=== PATIENT | female | born 1945 | race African-American/Black ===

== ENCOUNTER 2018-06-23 16:27 | Observation (INO) ==
[2018-06-23] MEDS ORDERED: MORPHINE 4 MG/1 ML VIAL IV STA (17:06)
[2018-06-23] MEDS ORDERED: ONDANSETRON 4 MG/2 ML VIAL IV STA (17:06)
[2018-06-23] MEDS ORDERED: ASPIRIN 325 MG TABLET PO STA (17:06)
[2018-06-23 17:45] LABS: Basophils # 0.1 10*3/uL (0.0-0.2); Eosinophils # 0.3 10*3/uL (0.0-0.87); Hematocrit 38.1 VOL% (35.7-47.0); Hemoglobin 12.2 GM/DL (12.0-16.0); Immature Granulocytes % 0.6 %; Immature Granulocytes Absolute 0.05 #; Lymphocytes # 2.4 10*3/uL (1.4-4.0); Lymphocytes % 29.2 % (21.3-54.2); Mean Corpuscular Hemoglobin 29 PG (27-34); Mean Corpuscular Volume 91.1 FL (87-102); Mean Platelet Volume 11.1 FL (9.6-12.0); Monocytes # 0.9 10*3/uL (0.11-0.8); Monocytes % 10.8 % (1.7-12.7); Neutrophils # 4.5 10*3/uL (1.4-7.4); Neutrophils % 54.4 % (38.7-73.9); Platelet Count 280 T/CUMM (130-400); Red Blood Count 4.18 MC/CUMM (3.8-5.5); Red Cell Distribution Width 13.9 % (9.3-17.3); White Blood Count 8.2 T/CUMM (4-12)
[2018-06-23 17:45] LABS: Apearance,Urine CLEAR (Clear); Bilirubin,Urine Negative (Negative); Blood, Urine Negative (Negative); Glucose,Urine (UA) Negative (Negative); Ketones,Urine Negative (Negative); Nitrite,Urine Negative (Negative); Protein,Urine Negative; RBC,Urine 1 /HPF (0-4); Squamous Epithelial Cell,Urine Occasional /HPF (0-10); Urine Color Yellow (Yellow); Urine Specific Gravity 1.014 (1.001-1.035); Urine Urobilinogen < 2.0 EU/DL (0.2-1.0); WBC,Urine 3 /HPF (0-6)
[2018-06-23 17:52] LABS: INR 0.9; PT Patient Result 10.3 SECS
[2018-06-23 18:04] LABS: Alanine Aminotransferase 22 U/L (13-56); Albumin 3.8 G/DL (3.4-5.0); Alkaline Phosphatase 56 U/L (45-117); Aspartate Amino Transferase 17 U/L (0-37); Bilirubin,Total < 0.39 MG/DL (0.2-1.0); Blood Urea Nitrogen 32 MG/DL (7-18); Calcium 8.8 MG/DL (8.5-10.1); Glucose 88 MG/DL (74-106); Osmolality,Calculated 284.4 MOS/KG (273-304); Potassium 3.9 MMOL/L (3.5-5.1); Sodium 140 MMOL/L (136-145); Total Protein 7.5 G/DL (6.4-8.3)
[2018-06-23] MEDS ORDERED: hydrALAZINE 20 MG/1 ML VIAL IV STA (18:59)
[2018-06-23] MEDS ORDERED: GLUCAGON 1 MG VIAL IM PRN (20:05)
[2018-06-23] MEDS ORDERED: MORPHINE 4 MG/1 ML VIAL IV PRN (20:05)
[2018-06-23] MEDS ORDERED: DEXTROSE 50% 25 GM/50 ML SYRINGE IV PRN (20:05)
[2018-06-23] MEDS ORDERED: ACETAMINOPHEN 325 MG TABLET PO PRN (20:05)
[2018-06-23] MEDS ORDERED: SODIUM CHLORIDE 0.9% 500 ML IV SCH (20:30)
[2018-06-23] MEDS ORDERED: NITROGLYCERIN 2% OINT 1 INCH/GM PACK TOP ONE (20:37)
[2018-06-23] MEDS ORDERED: NITROGLYCERIN SL 0.4 MG TABLET SL PRN (20:37)
[2018-06-23] MEDS: busPIRone 10 MG TABLET PO SCH (22:38)
[2018-06-23] MEDS: LOSARTAN 50 MG TABLET PO SCH (22:38)
[2018-06-23] MEDS: PANTOPRAZOLE 40 MG TABLET PO SCH (22:39)
[2018-06-23] MEDS: SIMVASTATIN 20 MG TABLET PO SCH (22:39)
[2018-06-23] MEDS: ENOXAPARIN 40 MG/0.4 ML SYRINGE SUBCUT SCH (22:39)
[2018-06-23] MEDS: INSULIN LISPRO 100 UNIT/ML SUBCUT SCH (22:39)
[2018-06-23] MEDS: INSULIN ASPART PROTAMINE/ASPART 70/30 100 UNIT/ML SUBCUT SCH (23:00)
[2018-06-24 04:58] LABS: Basophils # 0.1 10*3/uL (0.0-0.2); Basophils % 0.8 % (0.0-0.8); Eosinophils # 0.3 10*3/uL (0.0-0.87); Eosinophils % 3.6 % (0.00-10.9); Hemoglobin 11.3 GM/DL (12.0-16.0); Immature Granulocytes % 0.4 %; Immature Granulocytes Absolute 0.03 #; Lymphocytes # 2.7 10*3/uL (1.4-4.0); Lymphocytes % 34.8 % (21.3-54.2); Mean Corpuscular HGB Conc 32.3 GM/DL (32-36); Mean Corpuscular Hemoglobin 30 PG (27-34); Mean Corpuscular Volume 91.4 FL (87-102); Mean Platelet Volume 11.6 FL (9.6-12.0); Monocytes # 0.8 10*3/uL (0.11-0.8); Monocytes % 10.5 % (1.7-12.7); Neutrophils # 3.9 10*3/uL (1.4-7.4); Neutrophils % 49.9 % (38.7-73.9); Platelet Count 258 T/CUMM (130-400); Red Blood Count 3.83 MC/CUMM (3.8-5.5); Red Cell Distribution Width 14.1 % (9.3-17.3); White Blood Count 7.8 T/CUMM (4-12)
[2018-06-24 05:37] LABS: Calcium 8.1 MG/DL (8.5-10.1); Osmolality,Calculated 296.1 MOS/KG (273-304); Potassium 3.9 MMOL/L (3.5-5.1); Risk Ratio 2.26; Thyroid Stimulating Hormone 5.59 uIU/ml (0.358-3.74); VLDL CHOLESTEROL 29.2 MG/DL
[2018-06-24] MEDS: INSULIN LISPRO 100 UNIT/ML SUBCUT SCH ×4 (08:57→21:16)
[2018-06-24] MEDS: INSULIN ASPART PROTAMINE/ASPART 70/30 100 UNIT/ML SUBCUT SCH ×2 (09:52→21:14)
[2018-06-24] MEDS ORDERED: REGADENOSON 0.4 MG/5 ML SYRINGE IV ONE (10:14)
[2018-06-24] MEDS: glipiZIDE 5 MG TABLET PO SCH (10:40)
[2018-06-24] MEDS: LOSARTAN 50 MG TABLET PO SCH ×2 (10:41→21:12)
[2018-06-24] MEDS: ASPIRIN EC 81 MG TABLET PO SCH (10:41)
[2018-06-24] MEDS: ISOSORBIDE MONONITRATE 30 MG TABLET PO SCH (10:41)
[2018-06-24] MEDS: amLODIPine 10 MG TABLET PO SCH (10:41)
[2018-06-24] MEDS: PANTOPRAZOLE 40 MG TABLET PO SCH ×2 (10:41→21:12)
[2018-06-24] MEDS: busPIRone 10 MG TABLET PO SCH ×2 (10:41→21:12)
[2018-06-24 13:36] LABS: Free T4 (Free Thyroxine) 0.97 NG/DL (0.76-1.46)
[2018-06-24] MEDS: SIMVASTATIN 20 MG TABLET PO SCH (21:12)
[2018-06-24] MEDS: ENOXAPARIN 40 MG/0.4 ML SYRINGE SUBCUT SCH (21:13)
[2018-06-25] MEDS ORDERED: hydrALAZINE 20 MG/1 ML VIAL IV ONE (04:54)
[2018-06-25 05:06] LABS: Basophils # 0.1 10*3/uL (0.0-0.2); Eosinophils # 0.2 10*3/uL (0.0-0.87); Hematocrit 36.4 VOL% (35.7-47.0); Hemoglobin 11.6 GM/DL (12.0-16.0); Immature Granulocytes % 0.7 %; Immature Granulocytes Absolute 0.05 #; Lymphocytes # 2.8 10*3/uL (1.4-4.0); Lymphocytes % 39.2 % (21.3-54.2); Mean Corpuscular HGB Conc 31.9 GM/DL (32-36); Mean Corpuscular Hemoglobin 29 PG (27-34); Mean Corpuscular Volume 91.2 FL (87-102); Mean Platelet Volume 11.9 FL (9.6-12.0); Monocytes # 0.9 10*3/uL (0.11-0.8); Neutrophils # 3.1 10*3/uL (1.4-7.4); Neutrophils % 44.1 % (38.7-73.9); Platelet Count 268 T/CUMM (130-400); Red Blood Count 3.99 MC/CUMM (3.8-5.5); White Blood Count 7.1 T/CUMM (4-12)
[2018-06-25] MEDS: ONDANSETRON 4 MG/2 ML VIAL IV PRN (05:16)
[2018-06-25 05:20] LABS: Calcium 8.4 MG/DL (8.5-10.1); Osmolality,Calculated 285.8 MOS/KG (273-304); Potassium 3.3 MMOL/L (3.5-5.1)
[2018-06-25] MEDS ORDERED: POTASSIUM CHLORIDE 20 MEQ TABLET PO ONE (07:12)
[2018-06-25] MEDS: INSULIN LISPRO 100 UNIT/ML SUBCUT SCH ×4 (07:53→20:42)
[2018-06-25] MEDS: busPIRone 10 MG TABLET PO SCH ×2 (08:37→20:39)
[2018-06-25] MEDS: PANTOPRAZOLE 40 MG TABLET PO SCH ×2 (08:37→20:41)
[2018-06-25] MEDS: glipiZIDE 5 MG TABLET PO SCH (08:38)
[2018-06-25] MEDS: PRAZOSIN 1 MG CAPSULE PO SCH ×2 (08:38→20:41)
[2018-06-25] MEDS: DOCUSATE SODIUM 100 MG CAPSULE PO PRN (08:38)
[2018-06-25] MEDS: amLODIPine 10 MG TABLET PO SCH (08:38)
[2018-06-25] MEDS: CARVEDILOL 3.125 MG TABLET PO SCH ×2 (08:39→20:40)
[2018-06-25] MEDS: ISOSORBIDE MONONITRATE 30 MG TABLET PO SCH (08:39)
[2018-06-25] MEDS: INSULIN ASPART PROTAMINE/ASPART 70/30 100 UNIT/ML SUBCUT SCH ×2 (08:39→20:41)
[2018-06-25] MEDS: ASPIRIN EC 81 MG TABLET PO SCH (08:39)
[2018-06-25] MEDS: LOSARTAN 50 MG TABLET PO SCH ×2 (08:39→20:41)
[2018-06-25] MEDS ORDERED: CARVEDILOL 3.125 MG TABLET PO SCH (09:00)
[2018-06-25] MEDS: MAGNESIUM HYDROXIDE SUSP 30 ML UDCUP PO PRN (14:47)
[2018-06-25] MEDS: SIMVASTATIN 20 MG TABLET PO SCH (20:41)
[2018-06-25] MEDS: ENOXAPARIN 40 MG/0.4 ML SYRINGE SUBCUT SCH (20:43)
[2018-06-25] MEDS: hydrALAZINE 20 MG/1 ML VIAL IV PRN (23:56)
[2018-06-26 04:55] LABS: Calcium 8.6 MG/DL (8.5-10.1); Osmolality,Calculated 284.8 MOS/KG (273-304); Potassium 3.4 MMOL/L (3.5-5.1)
[2018-06-26] MEDS: hydrALAZINE 20 MG/1 ML VIAL IV PRN (06:14)
[2018-06-26] MEDS: CARVEDILOL 6.25 MG TABLET PO SCH ×2 (07:36→16:51)
[2018-06-26] MEDS: PRAZOSIN 1 MG CAPSULE PO SCH ×2 (07:37→21:37)
[2018-06-26] MEDS ORDERED: LORazepam 1 MG TABLET PO ONE (07:43)
[2018-06-26] MEDS: INSULIN LISPRO 100 UNIT/ML SUBCUT SCH ×4 (08:43→21:51)
[2018-06-26] MEDS: busPIRone 10 MG TABLET PO SCH ×2 (09:18→21:36)
[2018-06-26] MEDS: LOSARTAN 50 MG TABLET PO SCH ×2 (09:19→21:36)
[2018-06-26] MEDS: ASPIRIN EC 81 MG TABLET PO SCH (09:19)
[2018-06-26] MEDS: amLODIPine 10 MG TABLET PO SCH (09:19)
[2018-06-26] MEDS: ISOSORBIDE MONONITRATE 30 MG TABLET PO SCH (09:19)
[2018-06-26] MEDS: glipiZIDE 5 MG TABLET PO SCH (09:19)
[2018-06-26] MEDS: INSULIN ASPART PROTAMINE/ASPART 70/30 100 UNIT/ML SUBCUT SCH ×2 (09:19→21:41)
[2018-06-26] MEDS: PANTOPRAZOLE 40 MG TABLET PO SCH ×2 (09:19→21:38)
[2018-06-26] MEDS ORDERED: POTASSIUM CHLORIDE 20 MEQ TABLET PO ONE (09:45)
[2018-06-26] MEDS: ESCITALOPRAM 10 MG TABLET PO SCH (12:07)
[2018-06-26] MEDS: SIMVASTATIN 20 MG TABLET PO SCH (21:38)
[2018-06-26] MEDS: ENOXAPARIN 40 MG/0.4 ML SYRINGE SUBCUT SCH (21:39)
[2018-06-27] MEDS: ONDANSETRON 4 MG/2 ML VIAL IV PRN (07:30)
[2018-06-27] MEDS: INSULIN LISPRO 100 UNIT/ML SUBCUT SCH ×4 (07:34→22:13)
[2018-06-27] MEDS: ESCITALOPRAM 10 MG TABLET PO SCH (08:45)
[2018-06-27] MEDS: busPIRone 10 MG TABLET PO SCH ×2 (08:45→22:12)
[2018-06-27] MEDS: LOSARTAN 50 MG TABLET PO SCH ×2 (08:45→22:12)
[2018-06-27] MEDS: DOCUSATE SODIUM 100 MG CAPSULE PO PRN (08:45)
[2018-06-27] MEDS: PANTOPRAZOLE 40 MG TABLET PO SCH ×2 (08:45→22:14)
[2018-06-27] MEDS: glipiZIDE 5 MG TABLET PO SCH (08:45)
[2018-06-27] MEDS: ASPIRIN EC 81 MG TABLET PO SCH (08:45)
[2018-06-27] MEDS: amLODIPine 10 MG TABLET PO SCH (08:45)
[2018-06-27] MEDS: CARVEDILOL 6.25 MG TABLET PO SCH ×2 (08:45→16:44)
[2018-06-27] MEDS: PRAZOSIN 1 MG CAPSULE PO SCH ×2 (08:45→22:13)
[2018-06-27] MEDS: ISOSORBIDE MONONITRATE 30 MG TABLET PO SCH (08:45)
[2018-06-27] MEDS: MAGNESIUM HYDROXIDE SUSP 30 ML UDCUP PO PRN (08:46)
[2018-06-27] MEDS: INSULIN ASPART PROTAMINE/ASPART 70/30 100 UNIT/ML SUBCUT SCH ×2 (08:46→16:36)
[2018-06-27 14:42] LABS: Calcium 7.8 MG/DL (8.5-10.1); Osmolality,Calculated 285.4 MOS/KG (273-304); Potassium 4.4 MMOL/L (3.5-5.1)
[2018-06-27] MEDS ORDERED: SODIUM PHOSPHATE ENEMA 133 ML BOTTLE RECTAL PRN (16:12)
[2018-06-27] MEDS ORDERED: FLUCONAZOLE 150 MG TABLET PO ONE (17:00)
[2018-06-27] MEDS: ENOXAPARIN 40 MG/0.4 ML SYRINGE SUBCUT SCH (22:13)
[2018-06-27] MEDS: SIMVASTATIN 20 MG TABLET PO SCH (22:14)
[2018-06-28] MEDS: hydrALAZINE 20 MG/1 ML VIAL IV PRN (04:31)
[2018-06-28] MEDS: MAGNESIUM HYDROXIDE SUSP 30 ML UDCUP PO PRN (04:31)
[2018-06-28] MEDS: INSULIN LISPRO 100 UNIT/ML SUBCUT SCH ×2 (07:50→14:34)
[2018-06-28] MEDS: PRAZOSIN 1 MG CAPSULE PO SCH (08:31)
[2018-06-28] MEDS: INSULIN ASPART PROTAMINE/ASPART 70/30 100 UNIT/ML SUBCUT SCH (08:31)
[2018-06-28] MEDS: amLODIPine 10 MG TABLET PO SCH (08:38)
[2018-06-28] MEDS: CARVEDILOL 6.25 MG TABLET PO SCH (08:38)
[2018-06-28] MEDS: PANTOPRAZOLE 40 MG TABLET PO SCH (08:38)
[2018-06-28] MEDS: LOSARTAN 50 MG TABLET PO SCH (08:39)
[2018-06-28] MEDS: ISOSORBIDE MONONITRATE 30 MG TABLET PO SCH (08:39)
[2018-06-28] MEDS: ASPIRIN EC 81 MG TABLET PO SCH (08:39)
[2018-06-28] MEDS: busPIRone 10 MG TABLET PO SCH (08:39)
[2018-06-28] MEDS: ESCITALOPRAM 10 MG TABLET PO SCH (08:39)
[2018-06-28 12:02] VITALS: BP 184/75
== END 2018-06-28 13:40 | disposition home or self-care (01) ==
LOC: N.EDINP 16:27 → N.ED 16:27 → SUATTDRO 20:02 → N.TELES 20:21
PROVIDERS: ADMIT Internal Medicine; ATTEND Internal Medicine

== ENCOUNTER 2020-03-14 09:40 | Inpatient (IN) ==
[2020-03-14 10:57] LABS: Albumin 3.5 G/DL (3.4-5.0); Bilirubin,Total 0.6 MG/DL (0.2-1.0); Calcium 8.9 MG/DL (8.5-10.1); Osmolality,Calculated 285.4 MOS/KG (273-304); Total Protein 7.1 G/DL (6.4-8.3)
[2020-03-14 11:03] LABS: Basophils # 0.1 10*3/uL (0.0-0.2); Basophils % 0.6 % (0.0-0.8); Eosinophils # 0.1 10*3/uL (0.0-0.87); Eosinophils % 1.5 % (0.00-10.9); Hematocrit 39.6 VOL% (35.7-47.0); Hemoglobin 13.4 GM/DL (12.0-16.0); Immature Granulocytes % 0.3 %; Immature Granulocytes Absolute 0.03 #; Lymphocytes # 2.1 10*3/uL (1.4-4.0); Lymphocytes % 21.9 % (21.3-54.2); Mean Corpuscular HGB Conc 33.8 GM/DL (32-36); Mean Corpuscular Volume 88.6 FL (87-102); Mean Platelet Volume 11.1 FL (9.6-12.0); Monocytes % 7.8 % (1.7-12.7); Neutrophils % 67.9 % (38.7-73.9); Platelet Count 278 T/CUMM (130-400); Red Blood Count 4.47 MC/CUMM (3.8-5.5); Red Cell Distribution Width 13.3 % (9.3-17.3); White Blood Count 9.5 T/CUMM (4-12)
[2020-03-14] MEDS ORDERED: GLUCAGON 1 MG VIAL IM PRN (12:07)
[2020-03-14] MEDS ORDERED: DEXTROSE 50% 25 GM/50 ML VIAL IV PRN (12:07)
[2020-03-14] MEDS ORDERED: ENOXAPARIN 100 MG/ML SYRINGE SUBCUT STA (12:10)
[2020-03-14] MEDS ORDERED: ASPIRIN 325 MG TABLET PO STA (12:10)
[2020-03-14] MEDS: ONDANSETRON 4 MG/2 ML VIAL IV PRN (16:32)
[2020-03-14] MEDS: INSULIN REGULAR 100 UNIT/ML SUBCUT SCH ×2 (16:39→23:04)
[2020-03-14] MEDS: SIMVASTATIN 20 MG TABLET PO SCH (18:02)
[2020-03-14] MEDS ORDERED: ALBUTEROL 2.5 MG/3 ML NEB RESP TX PRN (19:00)
[2020-03-14] MEDS ORDERED: carvediloL 12.5 MG TABLET PO SCH (21:00)
[2020-03-14] MEDS: INSULIN GLARGINE 100 UNIT/ML SUBCUT SCH (23:03)
[2020-03-14] MEDS: busPIRone 15 MG TABLET PO SCH (23:04)
[2020-03-14] MEDS: LOSARTAN 50 MG TABLET PO SCH (23:04)
[2020-03-14] MEDS: glipiZIDE 5 MG TABLET PO SCH (23:04)
[2020-03-14] MEDS: DOCUSATE SODIUM 100 MG CAPSULE PO SCH (23:05)
[2020-03-14] MEDS: PANTOPRAZOLE 40 MG TABLET PO SCH (23:05)
[2020-03-15 06:35] LABS: Basophils # 0.1 10*3/uL (0.0-0.2); Basophils % 1.2 % (0.0-0.8); Eosinophils # 0.2 10*3/uL (0.0-0.87); Eosinophils % 2.8 % (0.00-10.9); Hematocrit 37.4 VOL% (35.7-47.0); Hemoglobin 12.9 GM/DL (12.0-16.0); Immature Granulocytes % 0.3 %; Immature Granulocytes Absolute 0.02 #; Lymphocytes # 2.6 10*3/uL (1.4-4.0); Lymphocytes % 39.5 % (21.3-54.2); Mean Corpuscular HGB Conc 34.5 GM/DL (32-36); Mean Corpuscular Volume 89.5 FL (87-102); Mean Platelet Volume 10.9 FL (9.6-12.0); Neutrophils % 45.2 % (38.7-73.9); Platelet Count 270 T/CUMM (130-400); Red Blood Count 4.18 MC/CUMM (3.8-5.5); Red Cell Distribution Width 13.6 % (9.3-17.3); White Blood Count 6.5 T/CUMM (4-12)
[2020-03-15 06:58] LABS: Calcium 8.2 MG/DL (8.5-10.1); Osmolality,Calculated 283.1 MOS/KG (273-304)
[2020-03-15] MEDS: PANTOPRAZOLE 40 MG TABLET PO SCH ×3 (09:29→21:22)
[2020-03-15] MEDS: glipiZIDE 5 MG TABLET PO SCH ×2 (09:30→21:23)
[2020-03-15] MEDS: ASPIRIN EC 81 MG TABLET PO SCH (09:30)
[2020-03-15] MEDS: ESCITALOPRAM 10 MG TABLET PO SCH (09:30)
[2020-03-15] MEDS: busPIRone 15 MG TABLET PO SCH ×3 (09:30→21:21)
[2020-03-15] MEDS: amLODIPine 5 MG TABLET PO SCH (09:30)
[2020-03-15] MEDS: PRAZOSIN 1 MG CAPSULE PO SCH (09:30)
[2020-03-15] MEDS: ISOSORBIDE MONONITRATE 30 MG TABLET PO SCH (09:31)
[2020-03-15] MEDS: FUROSEMIDE 40 MG TABLET PO SCH (09:31)
[2020-03-15] MEDS: LOSARTAN 50 MG TABLET PO SCH ×2 (09:31→21:21)
[2020-03-15] MEDS: DOCUSATE SODIUM 100 MG CAPSULE PO SCH ×2 (09:32→21:21)
[2020-03-15] MEDS: ENOXAPARIN 40 MG/0.4 ML SYRINGE SUBCUT SCH (09:32)
[2020-03-15] MEDS: INSULIN REGULAR 100 UNIT/ML SUBCUT SCH ×5 (09:32→21:32)
[2020-03-15 13:20] LABS: Bacteria,Urine Moderate /HPF (Few); Bilirubin,Urine Negative (Negative); Blood, Urine Negative (Negative); Glucose,Urine (UA) Negative (Negative); Hyaline Casts,Urine 1 /LPF (0-3); Ketones,Urine Negative (Negative); Nitrite,Urine Positive (Negative); Protein,Urine 100 MG/DL; RBC,Urine 2 /HPF (0-4); Squamous Epithelial Cell,Urine Occasional /HPF (0-10); Urine Appearance CLEAR (Clear); Urine Color Yellow (Yellow); Urine Specific Gravity 1.015 (1.001-1.035); Urine Urobilinogen < 2.0 EU/DL (0.2-1.0); WBC,Urine 1 /HPF (0-6)
[2020-03-15] MEDS: SIMVASTATIN 20 MG TABLET PO SCH (21:23)
[2020-03-15] MEDS: INSULIN GLARGINE 100 UNIT/ML SUBCUT SCH (21:25)
[2020-03-16 05:04] LABS: Basophils # 0.1 10*3/uL (0.0-0.2); Basophils % 1.1 % (0.0-0.8); Eosinophils # 0.2 10*3/uL (0.0-0.87); Eosinophils % 4.1 % (0.00-10.9); Hematocrit 38.9 VOL% (35.7-47.0); Hemoglobin 12.9 GM/DL (12.0-16.0); Immature Granulocytes % 0.4 %; Immature Granulocytes Absolute 0.02 #; Lymphocytes # 2.5 10*3/uL (1.4-4.0); Mean Corpuscular HGB Conc 33.2 GM/DL (32-36); Mean Corpuscular Volume 89.8 FL (87-102); Mean Platelet Volume 11.3 FL (9.6-12.0); Monocytes % 12.1 % (1.7-12.7); Neutrophils % 38.3 % (38.7-73.9); Platelet Count 246 T/CUMM (130-400); Red Blood Count 4.33 MC/CUMM (3.8-5.5); Red Cell Distribution Width 13.2 % (9.3-17.3); White Blood Count 5.6 T/CUMM (4-12)
[2020-03-16 05:21] LABS: Calcium 8.2 MG/DL (8.5-10.1)
[2020-03-16 05:26] LABS: Atypical Lymphocytes Few; Eosinophils 8 % (0-10); Hypochromasia 1+; Lymphocytes 46 % (20-55); Microcytosis Slight; Ovalocytes Slight; Platelet Estimate Adequate; Segmented Neutrophils 36 % (50-85); Total Cells Counted 100
[2020-03-16] MEDS: POTASSIUM CHLORIDE 20 MEQ TABLET PO PRN ×4 (06:26→16:34)
[2020-03-16] MEDS: hydrALAZINE 20 MG/1 ML VIAL IV PRN (08:44)
[2020-03-16] MEDS: INSULIN REGULAR 100 UNIT/ML SUBCUT SCH ×4 (08:46→21:39)
[2020-03-16] MEDS: PRAZOSIN 1 MG CAPSULE PO SCH (09:09)
[2020-03-16] MEDS: busPIRone 15 MG TABLET PO SCH ×3 (09:09→21:39)
[2020-03-16] MEDS: PANTOPRAZOLE 40 MG TABLET PO SCH ×3 (09:09→21:38)
[2020-03-16] MEDS: amLODIPine 5 MG TABLET PO SCH (09:10)
[2020-03-16] MEDS: LOSARTAN 50 MG TABLET PO SCH ×2 (09:10→21:39)
[2020-03-16] MEDS: FUROSEMIDE 40 MG TABLET PO SCH (09:10)
[2020-03-16] MEDS: ISOSORBIDE MONONITRATE 30 MG TABLET PO SCH (09:10)
[2020-03-16] MEDS: ESCITALOPRAM 10 MG TABLET PO SCH (09:10)
[2020-03-16] MEDS: ENOXAPARIN 40 MG/0.4 ML SYRINGE SUBCUT SCH (09:11)
[2020-03-16] MEDS: glipiZIDE 5 MG TABLET PO SCH ×2 (09:11→21:40)
[2020-03-16] MEDS: DOCUSATE SODIUM 100 MG CAPSULE PO SCH ×2 (09:11→21:37)
[2020-03-16] MEDS: ASPIRIN EC 81 MG TABLET PO SCH (09:11)
[2020-03-16] MEDS ORDERED: LIDOCAINE 1%/EPI INJ 20 ML VIAL ONE (09:41)
[2020-03-16] MEDS ORDERED: TISSUE ADHESIVE 1 EACH APPLICATOR TOP ONE ×2 (09:41→10:09)
[2020-03-16] MEDS ORDERED: LIDOCAINE 1%/EPI INJ 20 ML VIAL INFILTRAT ONE (10:13)
[2020-03-16] MEDS: SIMVASTATIN 20 MG TABLET PO SCH (18:02)
[2020-03-16] MEDS: INSULIN GLARGINE 100 UNIT/ML SUBCUT SCH (21:40)
[2020-03-16] MEDS: ACETAMINOPHEN 325 MG TABLET PO PRN (21:49)
[2020-03-17 05:43] LABS: Basophils # 0.1 10*3/uL (0.0-0.2); Eosinophils # 0.2 10*3/uL (0.0-0.87); Eosinophils % 2.9 % (0.00-10.9); Hematocrit 38.6 VOL% (35.7-47.0); Hemoglobin 12.8 GM/DL (12.0-16.0); Immature Granulocytes % 0.2 %; Immature Granulocytes Absolute 0.01 #; Lymphocytes # 2.5 10*3/uL (1.4-4.0); Lymphocytes % 48.2 % (21.3-54.2); Mean Corpuscular HGB Conc 33.2 GM/DL (32-36); Mean Corpuscular Volume 89.8 FL (87-102); Mean Platelet Volume 11.1 FL (9.6-12.0); Monocytes % 11.9 % (1.7-12.7); Neutrophils % 35.8 % (38.7-73.9); Platelet Count 254 T/CUMM (130-400); Red Cell Distribution Width 13.4 % (9.3-17.3); White Blood Count 5.2 T/CUMM (4-12)
[2020-03-17 06:11] LABS: Calcium 8.3 MG/DL (8.5-10.1); Osmolality,Calculated 280.3 MOS/KG (273-304)
[2020-03-17] MEDS: INSULIN REGULAR 100 UNIT/ML SUBCUT SCH ×4 (07:41→20:50)
[2020-03-17 08:37] LABS: Atypical Lymphocytes Few; Band Neutrophils 1 % (0-10); Eosinophils 2 % (0-10); Lymphocytes 54 % (20-55); Platelet Estimate Normal; Polychromasia Slight; Segmented Neutrophils 39 % (50-85); Total Cells Counted 100
[2020-03-17] MEDS: PANTOPRAZOLE 40 MG TABLET PO SCH ×3 (08:43→20:49)
[2020-03-17] MEDS: ASPIRIN EC 81 MG TABLET PO SCH (08:43)
[2020-03-17] MEDS: FUROSEMIDE 40 MG TABLET PO SCH (08:43)
[2020-03-17] MEDS: busPIRone 15 MG TABLET PO SCH ×3 (08:43→20:48)
[2020-03-17] MEDS: glipiZIDE 5 MG TABLET PO SCH ×3 (08:43→20:50)
[2020-03-17] MEDS: ESCITALOPRAM 10 MG TABLET PO SCH (08:43)
[2020-03-17] MEDS: DOCUSATE SODIUM 100 MG CAPSULE PO SCH ×2 (08:43→20:49)
[2020-03-17] MEDS: LOSARTAN 50 MG TABLET PO SCH ×2 (08:44→20:49)
[2020-03-17] MEDS: ACETAMINOPHEN 325 MG TABLET PO PRN ×2 (08:45→20:55)
[2020-03-17] MEDS: PRAZOSIN 1 MG CAPSULE PO SCH ×2 (08:45→20:48)
[2020-03-17] MEDS: ISOSORBIDE MONONITRATE 30 MG TABLET PO SCH (08:45)
[2020-03-17] MEDS: ENOXAPARIN 40 MG/0.4 ML SYRINGE SUBCUT SCH (08:46)
[2020-03-17] MEDS ORDERED: amLODIPine 5 MG TABLET PO SCH (09:00)
[2020-03-17] MEDS ORDERED: amLODIPine 10 MG TABLET PO SCH (09:00)
[2020-03-17] MEDS: SIMVASTATIN 20 MG TABLET PO SCH (19:03)
[2020-03-17] MEDS: INSULIN GLARGINE 100 UNIT/ML SUBCUT SCH (20:53)
[2020-03-18] MEDS: hydrALAZINE 20 MG/1 ML VIAL IV PRN ×2 (00:32→06:58)
[2020-03-18] MEDS: INSULIN REGULAR 100 UNIT/ML SUBCUT SCH ×4 (08:22→21:33)
[2020-03-18] MEDS: FUROSEMIDE 40 MG TABLET PO SCH (08:23)
[2020-03-18] MEDS: ESCITALOPRAM 10 MG TABLET PO SCH (08:23)
[2020-03-18] MEDS: ENOXAPARIN 40 MG/0.4 ML SYRINGE SUBCUT SCH (08:23)
[2020-03-18] MEDS: ASPIRIN EC 81 MG TABLET PO SCH (08:24)
[2020-03-18] MEDS: PANTOPRAZOLE 40 MG TABLET PO SCH ×3 (08:24→21:35)
[2020-03-18] MEDS: DOCUSATE SODIUM 100 MG CAPSULE PO SCH ×2 (08:24→21:35)
[2020-03-18] MEDS: ISOSORBIDE MONONITRATE 30 MG TABLET PO SCH (08:24)
[2020-03-18] MEDS: busPIRone 15 MG TABLET PO SCH ×3 (08:24→21:35)
[2020-03-18] MEDS: LOSARTAN 50 MG TABLET PO SCH ×2 (08:25→21:35)
[2020-03-18] MEDS: ONDANSETRON 4 MG/2 ML VIAL IV PRN ×2 (08:28→21:27)
[2020-03-18] MEDS: glipiZIDE 5 MG TABLET PO SCH ×2 (09:10→21:51)
[2020-03-18] MEDS ORDERED: CLORAZEPATE 3.75 MG TABLET PO SCH ×2 (12:30→13:00)
[2020-03-18] MEDS ORDERED: ALUMINUM/MAGNES/SIMETH MAX STR 30 ML UDCUP PO PRN (12:44)
[2020-03-18] MEDS: FAMOTIDINE 20 MG TABLET PO SCH (16:48)
[2020-03-18] MEDS: SIMVASTATIN 20 MG TABLET PO SCH (18:34)
[2020-03-18] MEDS: INSULIN GLARGINE 100 UNIT/ML SUBCUT SCH (21:33)
[2020-03-18] MEDS: PRAZOSIN 1 MG CAPSULE PO SCH (21:35)
[2020-03-18] MEDS ORDERED: MAGNESIUM HYDROXIDE SUSP 30 ML UDCUP PO PRN (21:45)
[2020-03-18] MEDS: CLORAZEPATE 3.75 MG TABLET PO SCH (22:16)
[2020-03-19] MEDS: ACETAMINOPHEN 325 MG TABLET PO PRN (04:59)
[2020-03-19] MEDS: ONDANSETRON 4 MG/2 ML VIAL IV PRN (05:07)
[2020-03-19 05:35] LABS: Basophils # 0.1 10*3/uL (0.0-0.2); Basophils % 0.8 % (0.0-0.8); Eosinophils % 0.6 % (0.00-10.9); Hematocrit 39.1 VOL% (35.7-47.0); Hemoglobin 13.1 GM/DL (12.0-16.0); Immature Granulocytes % 0.2 %; Immature Granulocytes Absolute 0.01 #; Lymphocytes # 1.7 10*3/uL (1.4-4.0); Lymphocytes % 26.2 % (21.3-54.2); Mean Corpuscular HGB Conc 33.5 GM/DL (32-36); Mean Corpuscular Volume 90.1 FL (87-102); Mean Platelet Volume 11.5 FL (9.6-12.0); Monocytes % 11.3 % (1.7-12.7); Neutrophils % 60.9 % (38.7-73.9); Platelet Count 254 T/CUMM (130-400); Red Blood Count 4.34 MC/CUMM (3.8-5.5); Red Cell Distribution Width 13.4 % (9.3-17.3); White Blood Count 6.6 T/CUMM (4-12)
[2020-03-19 05:48] LABS: Albumin 3.1 G/DL (3.4-5.0); Bilirubin,Total 0.6 MG/DL (0.2-1.0); Calcium 8.5 MG/DL (8.5-10.1); Osmolality,Calculated 284.4 MOS/KG (273-304); Total Protein 6.4 G/DL (6.4-8.3)
[2020-03-19] MEDS: ENOXAPARIN 40 MG/0.4 ML SYRINGE SUBCUT SCH (08:38)
[2020-03-19] MEDS: ASPIRIN EC 81 MG TABLET PO SCH (08:39)
[2020-03-19] MEDS: DOCUSATE SODIUM 100 MG CAPSULE PO SCH ×2 (08:39→22:01)
[2020-03-19] MEDS: PRAZOSIN 1 MG CAPSULE PO SCH ×2 (08:39→22:02)
[2020-03-19] MEDS: busPIRone 15 MG TABLET PO SCH ×3 (08:40→22:02)
[2020-03-19] MEDS: CLORAZEPATE 3.75 MG TABLET PO SCH ×2 (08:40→22:03)
[2020-03-19] MEDS: ISOSORBIDE MONONITRATE 60 MG TABLET PO SCH (08:40)
[2020-03-19] MEDS: ESCITALOPRAM 10 MG TABLET PO SCH (08:40)
[2020-03-19] MEDS: FUROSEMIDE 40 MG TABLET PO SCH (08:41)
[2020-03-19] MEDS: LOSARTAN 50 MG TABLET PO SCH ×2 (08:41→22:02)
[2020-03-19] MEDS: FAMOTIDINE 20 MG TABLET PO SCH (08:41)
[2020-03-19] MEDS: PANTOPRAZOLE 40 MG TABLET PO SCH ×2 (08:42→22:01)
[2020-03-19] MEDS: INSULIN REGULAR 100 UNIT/ML SUBCUT SCH ×4 (08:42→22:08)
[2020-03-19] MEDS: glipiZIDE 5 MG TABLET PO SCH (09:56)
[2020-03-19] MEDS: POLYETHYLENE GLYCOL POWDER 17 GM PACK PO SCH (16:57)
[2020-03-19] MEDS: BISACODYL 5 MG TABLET PO SCH (16:57)
[2020-03-19] MEDS: SIMVASTATIN 20 MG TABLET PO SCH (18:32)
[2020-03-19] MEDS: SODIUM PHOSPHATE ENEMA 133 ML BOTTLE RECTAL PRN (18:34)
[2020-03-19] MEDS: DOXYCYCLINE HYCLATE 100 MG CAPSULE PO SCH (22:01)
[2020-03-19] MEDS: INSULIN GLARGINE 100 UNIT/ML SUBCUT SCH (22:09)
[2020-03-20] MEDS ORDERED: CLORAZEPATE 3.75 MG TABLET PO PRN (08:56)
[2020-03-20] MEDS: FUROSEMIDE 40 MG TABLET PO SCH (09:04)
[2020-03-20] MEDS: ISOSORBIDE MONONITRATE 60 MG TABLET PO SCH (09:04)
[2020-03-20] MEDS: ESCITALOPRAM 10 MG TABLET PO SCH (09:05)
[2020-03-20] MEDS: BISACODYL 5 MG TABLET PO SCH (09:05)
[2020-03-20] MEDS: PANTOPRAZOLE 40 MG TABLET PO SCH ×2 (09:05→21:18)
[2020-03-20] MEDS: DOXYCYCLINE HYCLATE 100 MG CAPSULE PO SCH ×2 (09:05→21:19)
[2020-03-20] MEDS: LOSARTAN 50 MG TABLET PO SCH ×2 (09:05→21:19)
[2020-03-20] MEDS: PRAZOSIN 1 MG CAPSULE PO SCH ×2 (09:05→21:19)
[2020-03-20] MEDS: busPIRone 15 MG TABLET PO SCH ×3 (09:05→21:19)
[2020-03-20] MEDS: ASPIRIN EC 81 MG TABLET PO SCH (09:05)
[2020-03-20] MEDS: FAMOTIDINE 20 MG TABLET PO SCH (09:05)
[2020-03-20] MEDS: DOCUSATE SODIUM 100 MG CAPSULE PO SCH ×2 (09:05→21:18)
[2020-03-20] MEDS: ENOXAPARIN 40 MG/0.4 ML SYRINGE SUBCUT SCH (09:05)
[2020-03-20] MEDS: POLYETHYLENE GLYCOL POWDER 17 GM PACK PO SCH (09:21)
[2020-03-20] MEDS: INSULIN REGULAR 100 UNIT/ML SUBCUT SCH ×4 (09:22→21:19)
[2020-03-20] MEDS: ACETAMINOPHEN 325 MG TABLET PO PRN (14:55)
[2020-03-20] MEDS: SIMVASTATIN 20 MG TABLET PO SCH (18:17)
[2020-03-20] MEDS: INSULIN GLARGINE 100 UNIT/ML SUBCUT SCH (21:19)
[2020-03-21 06:27] LABS: Basophils % 0.8 % (0.0-0.8); Eosinophils # 0.2 10*3/uL (0.0-0.87); Hematocrit 37.3 VOL% (35.7-47.0); Hemoglobin 12.4 GM/DL (12.0-16.0); Immature Granulocytes % 0.2 %; Immature Granulocytes Absolute 0.01 #; Lymphocytes # 2.3 10*3/uL (1.4-4.0); Lymphocytes % 44.1 % (21.3-54.2); Mean Corpuscular HGB Conc 33.2 GM/DL (32-36); Mean Corpuscular Volume 90.5 FL (87-102); Mean Platelet Volume 11.5 FL (9.6-12.0); Monocytes % 11.9 % (1.7-12.7); Platelet Count 236 T/CUMM (130-400); Red Blood Count 4.12 MC/CUMM (3.8-5.5); Red Cell Distribution Width 13.2 % (9.3-17.3); White Blood Count 5.2 T/CUMM (4-12)
[2020-03-21 06:43] LABS: Calcium 8.7 MG/DL (8.5-10.1); Osmolality,Calculated 286.3 MOS/KG (273-304)
[2020-03-21] MEDS: LOSARTAN 50 MG TABLET PO SCH ×2 (08:20→21:02)
[2020-03-21] MEDS: FAMOTIDINE 20 MG TABLET PO SCH (08:20)
[2020-03-21] MEDS: ISOSORBIDE MONONITRATE 60 MG TABLET PO SCH (08:20)
[2020-03-21] MEDS: PANTOPRAZOLE 40 MG TABLET PO SCH ×2 (08:20→21:01)
[2020-03-21] MEDS: ESCITALOPRAM 10 MG TABLET PO SCH (08:21)
[2020-03-21] MEDS: busPIRone 15 MG TABLET PO SCH ×3 (08:21→21:02)
[2020-03-21] MEDS: INSULIN REGULAR 100 UNIT/ML SUBCUT SCH ×4 (08:22→21:02)
[2020-03-21] MEDS: PRAZOSIN 1 MG CAPSULE PO SCH ×2 (08:27→21:01)
[2020-03-21] MEDS: ONDANSETRON 4 MG/2 ML VIAL IV PRN (08:28)
[2020-03-21] MEDS: DOXYCYCLINE HYCLATE 100 MG CAPSULE PO SCH ×2 (09:36→21:01)
[2020-03-21] MEDS: POLYETHYLENE GLYCOL POWDER 17 GM PACK PO SCH (09:36)
[2020-03-21] MEDS: ENOXAPARIN 40 MG/0.4 ML SYRINGE SUBCUT SCH (09:36)
[2020-03-21] MEDS: FUROSEMIDE 40 MG TABLET PO SCH (09:36)
[2020-03-21] MEDS: BISACODYL 5 MG TABLET PO SCH (09:36)
[2020-03-21] MEDS: ASPIRIN EC 81 MG TABLET PO SCH (09:36)
[2020-03-21] MEDS: DOCUSATE SODIUM 100 MG CAPSULE PO SCH ×2 (09:36→21:01)
[2020-03-21] MEDS: ACETAMINOPHEN 325 MG TABLET PO PRN (17:55)
[2020-03-21] MEDS: SIMVASTATIN 20 MG TABLET PO SCH (18:00)
[2020-03-21] MEDS: INSULIN GLARGINE 100 UNIT/ML SUBCUT SCH (21:02)
[2020-03-22] MEDS: ACETAMINOPHEN 325 MG TABLET PO PRN ×2 (04:28→16:34)
[2020-03-22 05:40] LABS: Basophils # 0.1 10*3/uL (0.0-0.2); Eosinophils # 0.3 10*3/uL (0.0-0.87); Hematocrit 36.9 VOL% (35.7-47.0); Hemoglobin 12.6 GM/DL (12.0-16.0); Immature Granulocytes % 0.3 %; Immature Granulocytes Absolute 0.02 #; Lymphocytes # 2.5 10*3/uL (1.4-4.0); Lymphocytes % 43.5 % (21.3-54.2); Mean Corpuscular HGB Conc 34.1 GM/DL (32-36); Mean Corpuscular Volume 89.3 FL (87-102); Mean Platelet Volume 10.8 FL (9.6-12.0); Monocytes % 11.4 % (1.7-12.7); Neutrophils % 38.8 % (38.7-73.9); Platelet Count 249 T/CUMM (130-400); Red Blood Count 4.13 MC/CUMM (3.8-5.5); Red Cell Distribution Width 13.1 % (9.3-17.3); White Blood Count 5.8 T/CUMM (4-12)
[2020-03-22] MEDS: hydrALAZINE 20 MG/1 ML VIAL IV PRN (05:57)
[2020-03-22 06:36] LABS: Calcium 8.9 MG/DL (8.5-10.1); Osmolality,Calculated 278.4 MOS/KG (273-304)
[2020-03-22] MEDS: FUROSEMIDE 40 MG TABLET PO SCH (09:19)
[2020-03-22] MEDS: FAMOTIDINE 20 MG TABLET PO SCH (09:19)
[2020-03-22] MEDS: POTASSIUM CHLORIDE 20 MEQ TABLET PO SCH (09:19)
[2020-03-22] MEDS: PRAZOSIN 1 MG CAPSULE PO SCH ×2 (09:20→22:31)
[2020-03-22] MEDS: BISACODYL 5 MG TABLET PO SCH (09:20)
[2020-03-22] MEDS: DOCUSATE SODIUM 100 MG CAPSULE PO SCH ×2 (09:20→22:31)
[2020-03-22] MEDS: PANTOPRAZOLE 40 MG TABLET PO SCH ×2 (09:20→22:32)
[2020-03-22] MEDS: LOSARTAN 50 MG TABLET PO SCH ×2 (09:20→22:31)
[2020-03-22] MEDS: busPIRone 15 MG TABLET PO SCH ×3 (09:21→22:32)
[2020-03-22] MEDS: NYSTATIN 500,000 UNIT/5 ML UDCUP SWISH/SWAL SCH ×4 (09:21→22:32)
[2020-03-22] MEDS: ISOSORBIDE MONONITRATE 60 MG TABLET PO SCH (09:21)
[2020-03-22] MEDS: ASPIRIN EC 81 MG TABLET PO SCH (09:21)
[2020-03-22] MEDS: ESCITALOPRAM 10 MG TABLET PO SCH (09:21)
[2020-03-22] MEDS: DOXYCYCLINE HYCLATE 100 MG CAPSULE PO SCH ×2 (09:21→22:32)
[2020-03-22] MEDS: ENOXAPARIN 40 MG/0.4 ML SYRINGE SUBCUT SCH (09:22)
[2020-03-22] MEDS: POLYETHYLENE GLYCOL POWDER 17 GM PACK PO SCH (09:23)
[2020-03-22] MEDS: INSULIN REGULAR 100 UNIT/ML SUBCUT SCH ×4 (09:24→22:43)
[2020-03-22] MEDS: SIMVASTATIN 20 MG TABLET PO SCH (18:37)
[2020-03-22] MEDS: SODIUM PHOSPHATE ENEMA 133 ML BOTTLE RECTAL PRN (20:58)
[2020-03-22] MEDS: INSULIN GLARGINE 100 UNIT/ML SUBCUT SCH (22:43)
[2020-03-23 05:29] LABS: Basophils # 0.1 10*3/uL (0.0-0.2); Basophils % 0.9 % (0.0-0.8); Eosinophils # 0.2 10*3/uL (0.0-0.87); Eosinophils % 4.3 % (0.00-10.9); Hematocrit 38.2 VOL% (35.7-47.0); Hemoglobin 12.9 GM/DL (12.0-16.0); Immature Granulocytes % 0.2 %; Immature Granulocytes Absolute 0.01 #; Lymphocytes # 2.4 10*3/uL (1.4-4.0); Lymphocytes % 44.5 % (21.3-54.2); Mean Corpuscular HGB Conc 33.8 GM/DL (32-36); Mean Corpuscular Volume 90.3 FL (87-102); Mean Platelet Volume 11.6 FL (9.6-12.0); Monocytes % 11.4 % (1.7-12.7); Neutrophils % 38.7 % (38.7-73.9); Platelet Count 245 T/CUMM (130-400); Red Blood Count 4.23 MC/CUMM (3.8-5.5); Red Cell Distribution Width 13.2 % (9.3-17.3); White Blood Count 5.4 T/CUMM (4-12)
[2020-03-23 05:59] LABS: Calcium 8.9 MG/DL (8.5-10.1); Osmolality,Calculated 283.5 MOS/KG (273-304)
[2020-03-23 08:47] VITALS: BP 171/81
[2020-03-23] MEDS: NYSTATIN 500,000 UNIT/5 ML UDCUP SWISH/SWAL SCH (08:52)
[2020-03-23] MEDS: ISOSORBIDE MONONITRATE 60 MG TABLET PO SCH (08:52)
[2020-03-23] MEDS: ASPIRIN EC 81 MG TABLET PO SCH (08:52)
[2020-03-23] MEDS: BISACODYL 5 MG TABLET PO SCH (08:52)
[2020-03-23] MEDS: PRAZOSIN 1 MG CAPSULE PO SCH (08:52)
[2020-03-23] MEDS: PANTOPRAZOLE 40 MG TABLET PO SCH (08:52)
[2020-03-23] MEDS: LOSARTAN 50 MG TABLET PO SCH (08:53)
[2020-03-23] MEDS: ENOXAPARIN 40 MG/0.4 ML SYRINGE SUBCUT SCH (08:53)
[2020-03-23] MEDS: FAMOTIDINE 20 MG TABLET PO SCH (08:53)
[2020-03-23] MEDS: DOCUSATE SODIUM 100 MG CAPSULE PO SCH (08:53)
[2020-03-23] MEDS: FUROSEMIDE 40 MG TABLET PO SCH (08:53)
[2020-03-23] MEDS: POLYETHYLENE GLYCOL POWDER 17 GM PACK PO SCH (08:54)
[2020-03-23] MEDS: INSULIN REGULAR 100 UNIT/ML SUBCUT SCH ×2 (08:54→12:28)
[2020-03-23] MEDS: busPIRone 15 MG TABLET PO SCH (08:58)
[2020-03-23] MEDS: DOXYCYCLINE HYCLATE 100 MG CAPSULE PO SCH (08:59)
[2020-03-23] MEDS: ESCITALOPRAM 10 MG TABLET PO SCH (08:59)
[2020-03-23] MEDS: POTASSIUM CHLORIDE 20 MEQ TABLET PO SCH (08:59)
[2020-03-23] MEDS: ACETAMINOPHEN 325 MG TABLET PO PRN (12:08)
== END 2020-03-23 12:09 | disposition swing bed (61) | DRG 260 ==
LOC: N.EDINP 09:40 → N.ED 09:40 → N.EDINP 17:15 → N.TELES 17:27
PROVIDERS: ADMIT Internal Medicine; ATTEND Internal Medicine

== ENCOUNTER 2020-07-28 19:27 | Inpatient (IN) ==
[2020-07-28 20:00] LABS: Basophils # 0.1 10*3/uL (0.0-0.2); Basophils % 0.8 % (0.0-0.8); Eosinophils # 0.2 10*3/uL (0.0-0.87); Eosinophils % 2.4 % (0.00-10.9); Hematocrit 41.1 VOL% (35.7-47.0); Hemoglobin 13.9 GM/DL (12.0-16.0); Immature Granulocytes % 0.4 %; Immature Granulocytes Absolute 0.03 #; Lymphocytes # 2.8 10*3/uL (1.4-4.0); Lymphocytes % 38.4 % (21.3-54.2); Mean Corpuscular HGB Conc 33.8 GM/DL (32-36); Mean Corpuscular Volume 89.9 FL (87-102); Mean Platelet Volume 11.4 FL (9.6-12.0); Monocytes % 8.3 % (1.7-12.7); Neutrophils % 49.7 % (38.7-73.9); Platelet Count 272 T/CUMM (130-400); Red Blood Count 4.57 MC/CUMM (3.8-5.5); Red Cell Distribution Width 13.1 % (9.3-17.3); White Blood Count 7.2 T/CUMM (4-12)
[2020-07-28 20:15] LABS: PT Patient Result 11.4 SECS (10.5-12.0); Partial Thromboplastin Time 23.6 SECS (23.9-33.8)
[2020-07-28 20:16] LABS: Albumin 3.6 G/DL (3.4-5.0); Bilirubin,Total 0.5 MG/DL (0.2-1.0); Calcium 8.7 MG/DL (8.5-10.1); Osmolality,Calculated 286.7 MOS/KG (273-304); Potassium 3.6 MMOL/L (3.5-5.1); Total Protein 7.2 G/DL (6.4-8.2)
[2020-07-28] MEDS ORDERED: ONDANSETRON 4 MG/2 ML VIAL IV PRN (22:39)
[2020-07-29] MEDS: ACETAMINOPHEN 325 MG TABLET PO PRN ×3 (02:16→16:19)
[2020-07-29 05:27] LABS: Basophils # 0.1 10*3/uL (0.0-0.2); Basophils % 0.3 % (0.0-0.8); Eosinophils % 0.1 % (0.00-10.9); Hematocrit 38.1 VOL% (35.7-47.0); Hemoglobin 12.9 GM/DL (12.0-16.0); Immature Granulocytes % 0.7 %; Immature Granulocytes Absolute 0.12 #; Lymphocytes # 1.6 10*3/uL (1.4-4.0); Lymphocytes % 9.4 % (21.3-54.2); Mean Corpuscular HGB Conc 33.9 GM/DL (32-36); Mean Corpuscular Volume 90.5 FL (87-102); Mean Platelet Volume 11.4 FL (9.6-12.0); Monocytes % 6.7 % (1.7-12.7); Neutrophils % 82.8 % (38.7-73.9); Platelet Count 251 T/CUMM (130-400); Red Blood Count 4.21 MC/CUMM (3.8-5.5); Red Cell Distribution Width 13.1 % (9.3-17.3); White Blood Count 17.5 T/CUMM (4-12)
[2020-07-29 05:48] LABS: Albumin 3.2 G/DL (3.4-5.0); Bilirubin,Total 0.9 MG/DL (0.2-1.0); Calcium 8.5 MG/DL (8.5-10.1); Lymphocytes 8 % (20-55); Osmolality,Calculated 281.5 MOS/KG (273-304); Platelet Estimate Adequate; Potassium 3.4 MMOL/L (3.5-5.1); Segmented Neutrophils 88 % (50-85); Total Cells Counted 100; Total Protein 6.4 G/DL (6.4-8.2)
[2020-07-29] MEDS: LORATADINE 10 MG TABLET PO SCH (09:22)
[2020-07-29 10:16] LABS: Bilirubin,Direct 0.21 MG/DL (0.0-0.20); Bilirubin,Indirect 0.7 MG/DL (0.0-1.0); Bilirubin,Total 0.9 MG/DL (0.2-1.0); Total Protein 6.2 G/DL (6.4-8.2)
[2020-07-29] MEDS ORDERED: POTASSIUM CHLORIDE 20 MEQ TABLET PO ONE (10:23)
[2020-07-29] MEDS: FUROSEMIDE 40 MG TABLET PO SCH (10:54)
[2020-07-29] MEDS: ASPIRIN EC 81 MG TABLET PO SCH (10:54)
[2020-07-29] MEDS: ISOSORBIDE MONONITRATE 60 MG TABLET PO SCH (10:54)
[2020-07-29 18:08] LABS: Bacteria,Urine Moderate /HPF (Few); Bilirubin,Urine Negative (Negative); Blood, Urine Negative (Negative); Glucose,Urine (UA) Negative (Negative); Hyaline Casts,Urine 9 /LPF (0-3); Ketones,Urine Negative (Negative); Mucus,Urine Few /LPF (Occasional); Nitrite,Urine Positive (Negative); Protein,Urine 100 MG/DL; Squamous Epithelial Cell,Urine Occasional /HPF (0-10); Urine Appearance Slightly Hazy (Clear); Urine Color Yellow (Yellow); Urine Specific Gravity 1.016 (1.001-1.035); Urine Urobilinogen < 2.0 EU/DL (0.2-1.0)
[2020-07-29] MEDS ORDERED: CLORAZEPATE 3.75 MG TABLET PO PRN (20:25)
[2020-07-29] MEDS ORDERED: ALBUTEROL 2.5 MG/3 ML NEB RESP TX PRN (20:25)
[2020-07-29] MEDS ORDERED: GLUCAGON 1 MG VIAL IM PRN (20:31)
[2020-07-29] MEDS ORDERED: DEXTROSE 50% 25 GM/50 ML VIAL IV PRN (20:31)
[2020-07-29] MEDS ORDERED: cefTRIAXone 1,000 MG in SODIUM CHLORIDE 0.9% 100 ML IV SCH (21:00)
[2020-07-29] MEDS: LOSARTAN 50 MG TABLET PO SCH (22:04)
[2020-07-29] MEDS: PANTOPRAZOLE 40 MG TABLET PO SCH (22:04)
[2020-07-29] MEDS: SIMVASTATIN 20 MG TABLET PO SCH (22:04)
[2020-07-29] MEDS: INSULIN GLARGINE 100 UNIT/ML SUBCUT SCH (22:05)
[2020-07-29] MEDS: INSULIN LISPRO 100 UNIT/ML SUBCUT SCH (22:06)
[2020-07-30 06:11] LABS: Basophils # 0.1 10*3/uL (0.0-0.2); Basophils % 0.6 % (0.0-0.8); Eosinophils # 0.1 10*3/uL (0.0-0.87); Eosinophils % 0.5 % (0.00-10.9); Hematocrit 36.1 VOL% (35.7-47.0); Hemoglobin 12.3 GM/DL (12.0-16.0); Immature Granulocytes % 0.3 %; Immature Granulocytes Absolute 0.03 #; Lymphocytes # 2.5 10*3/uL (1.4-4.0); Lymphocytes % 26.4 % (21.3-54.2); Mean Corpuscular HGB Conc 34.1 GM/DL (32-36); Mean Corpuscular Volume 88.9 FL (87-102); Mean Platelet Volume 11.5 FL (9.6-12.0); Monocytes % 9.3 % (1.7-12.7); Neutrophils % 62.9 % (38.7-73.9); Platelet Count 246 T/CUMM (130-400); Red Blood Count 4.06 MC/CUMM (3.8-5.5); Red Cell Distribution Width 13.3 % (9.3-17.3); White Blood Count 9.5 T/CUMM (4-12)
[2020-07-30 06:16] LABS: Calcium 8.1 MG/DL (8.5-10.1); Osmolality,Calculated 280.7 MOS/KG (273-304); Potassium 3.2 MMOL/L (3.5-5.1)
[2020-07-30] MEDS ORDERED: POTASSIUM CHLORIDE 20 MEQ TABLET PO SCH (09:00)
[2020-07-30] MEDS: INSULIN LISPRO 100 UNIT/ML SUBCUT SCH ×4 (09:10→21:56)
[2020-07-30] MEDS: cefTRIAXone 2,000 MG in SODIUM CHLORIDE 0.9% 100 ML IV SCH (09:11)
[2020-07-30] MEDS: POTASSIUM CHLORIDE 20 MEQ TABLET PO SCH (09:11)
[2020-07-30] MEDS: ASPIRIN EC 81 MG TABLET PO SCH (09:11)
[2020-07-30] MEDS: ISOSORBIDE MONONITRATE 60 MG TABLET PO SCH (09:11)
[2020-07-30] MEDS: PANTOPRAZOLE 40 MG TABLET PO SCH ×2 (09:12→21:55)
[2020-07-30] MEDS: LORATADINE 10 MG TABLET PO SCH (09:12)
[2020-07-30] MEDS: FUROSEMIDE 40 MG TABLET PO SCH (09:12)
[2020-07-30] MEDS: ACETAMINOPHEN 325 MG TABLET PO PRN (21:54)
[2020-07-30] MEDS: INSULIN GLARGINE 100 UNIT/ML SUBCUT SCH (21:55)
[2020-07-30] MEDS: LOSARTAN 50 MG TABLET PO SCH (21:55)
[2020-07-30] MEDS: SIMVASTATIN 20 MG TABLET PO SCH (21:55)
[2020-07-31 05:09] LABS: Basophils # 0.1 10*3/uL (0.0-0.2); Basophils % 0.8 % (0.0-0.8); Eosinophils # 0.2 10*3/uL (0.0-0.87); Eosinophils % 2.1 % (0.00-10.9); Hemoglobin 11.5 GM/DL (12.0-16.0); Immature Granulocytes % 0.3 %; Immature Granulocytes Absolute 0.02 #; Lymphocytes % 38.9 % (21.3-54.2); Mean Corpuscular HGB Conc 32.9 GM/DL (32-36); Mean Corpuscular Volume 91.6 FL (87-102); Mean Platelet Volume 11.1 FL (9.6-12.0); Monocytes % 11.5 % (1.7-12.7); Neutrophils % 46.4 % (38.7-73.9); Platelet Count 238 T/CUMM (130-400); Red Blood Count 3.82 MC/CUMM (3.8-5.5); Red Cell Distribution Width 13.5 % (9.3-17.3); White Blood Count 7.7 T/CUMM (4-12)
[2020-07-31 05:25] LABS: Calcium 8.7 MG/DL (8.5-10.1); Osmolality,Calculated 287.5 MOS/KG (273-304); Potassium 3.5 MMOL/L (3.5-5.1)
[2020-07-31] MEDS: FUROSEMIDE 40 MG TABLET PO SCH (08:50)
[2020-07-31] MEDS: ISOSORBIDE MONONITRATE 60 MG TABLET PO SCH (08:50)
[2020-07-31] MEDS: PANTOPRAZOLE 40 MG TABLET PO SCH ×2 (08:50→20:53)
[2020-07-31] MEDS: POTASSIUM CHLORIDE 20 MEQ TABLET PO SCH (08:50)
[2020-07-31] MEDS: ASPIRIN EC 81 MG TABLET PO SCH (08:50)
[2020-07-31] MEDS: LORATADINE 10 MG TABLET PO SCH (08:50)
[2020-07-31] MEDS: cefTRIAXone 2,000 MG in SODIUM CHLORIDE 0.9% 100 ML IV SCH (08:51)
[2020-07-31] MEDS: INSULIN LISPRO 100 UNIT/ML SUBCUT SCH ×4 (08:51→21:50)
[2020-07-31] MEDS: ACETAMINOPHEN 325 MG TABLET PO PRN (09:06)
[2020-07-31] MEDS: SIMVASTATIN 20 MG TABLET PO SCH (20:53)
[2020-07-31] MEDS: LOSARTAN 50 MG TABLET PO SCH (20:54)
[2020-07-31] MEDS: levETIRAcetam 500 MG TABLET PO SCH (21:51)
[2020-07-31] MEDS: INSULIN GLARGINE 100 UNIT/ML SUBCUT SCH (21:51)
[2020-08-01 05:32] LABS: Basophils # 0.1 10*3/uL (0.0-0.2); Basophils % 1.2 % (0.0-0.8); Eosinophils # 0.2 10*3/uL (0.0-0.87); Hematocrit 35.7 VOL% (35.7-47.0); Hemoglobin 12.1 GM/DL (12.0-16.0); Immature Granulocytes % 0.2 %; Immature Granulocytes Absolute 0.01 #; Lymphocytes # 2.3 10*3/uL (1.4-4.0); Lymphocytes % 38.8 % (21.3-54.2); Mean Corpuscular HGB Conc 33.9 GM/DL (32-36); Mean Corpuscular Volume 90.6 FL (87-102); Mean Platelet Volume 11.2 FL (9.6-12.0); Monocytes % 11.1 % (1.7-12.7); Neutrophils % 44.7 % (38.7-73.9); Platelet Count 255 T/CUMM (130-400); Red Blood Count 3.94 MC/CUMM (3.8-5.5); Red Cell Distribution Width 13.3 % (9.3-17.3)
[2020-08-01 05:56] LABS: Calcium 8.6 MG/DL (8.5-10.1); Osmolality,Calculated 282.7 MOS/KG (273-304); Potassium 3.9 MMOL/L (3.5-5.1)
[2020-08-01 06:10] LABS: Calcium 9.3 MG/DL (8.5-10.1); Osmolality,Calculated 287.4 MOS/KG (273-304); Potassium 3.8 MMOL/L (3.5-5.1)
[2020-08-01] MEDS: cefTRIAXone 2,000 MG in SODIUM CHLORIDE 0.9% 100 ML IV SCH (09:31)
[2020-08-01] MEDS: INSULIN LISPRO 100 UNIT/ML SUBCUT SCH ×4 (09:32→21:01)
[2020-08-01] MEDS: FUROSEMIDE 40 MG TABLET PO SCH (09:33)
[2020-08-01] MEDS: LORATADINE 10 MG TABLET PO SCH (09:33)
[2020-08-01] MEDS: ASPIRIN EC 81 MG TABLET PO SCH (09:33)
[2020-08-01] MEDS: levETIRAcetam 500 MG TABLET PO SCH ×2 (09:34→21:01)
[2020-08-01] MEDS: PANTOPRAZOLE 40 MG TABLET PO SCH ×2 (09:34→21:00)
[2020-08-01] MEDS: ISOSORBIDE MONONITRATE 60 MG TABLET PO SCH (09:34)
[2020-08-01] MEDS: POTASSIUM CHLORIDE 20 MEQ TABLET PO SCH (09:35)
[2020-08-01] MEDS: LOSARTAN 50 MG TABLET PO SCH (21:00)
[2020-08-01] MEDS ORDERED: INSULIN GLARGINE 100 UNIT/ML SUBCUT SCH (21:00)
[2020-08-01] MEDS: SIMVASTATIN 20 MG TABLET PO SCH (21:01)
[2020-08-02] MEDS: ISOSORBIDE MONONITRATE 60 MG TABLET PO SCH (09:30)
[2020-08-02] MEDS: PANTOPRAZOLE 40 MG TABLET PO SCH (09:30)
[2020-08-02] MEDS: levETIRAcetam 500 MG TABLET PO SCH (09:30)
[2020-08-02] MEDS: FUROSEMIDE 40 MG TABLET PO SCH (09:30)
[2020-08-02] MEDS: LORATADINE 10 MG TABLET PO SCH (09:30)
[2020-08-02] MEDS: POTASSIUM CHLORIDE 20 MEQ TABLET PO SCH (09:30)
[2020-08-02] MEDS: ASPIRIN EC 81 MG TABLET PO SCH (09:30)
[2020-08-02] MEDS: cefTRIAXone 2,000 MG in SODIUM CHLORIDE 0.9% 100 ML IV SCH (09:31)
[2020-08-02] MEDS: INSULIN LISPRO 100 UNIT/ML SUBCUT SCH ×2 (09:49→11:59)
[2020-08-02 11:18] VITALS: BP 140/61
== END 2020-08-02 13:10 | disposition home health service (06) | DRG 101 ==
LOC: EDBD → EDUNIT# → N.ED 19:27 → N.EDINP 19:27 → N.TELEN 07-29 00:22
PROVIDERS: ADMIT Student in an Organized Health Care Education/Training Program; ATTEND Internal Medicine

== ENCOUNTER 2022-01-13 08:06 | Inpatient (IN) ==
[2022-01-13] MEDS ORDERED: SODIUM CHLORIDE 0.9% 1,000 ML IV STA (08:43)
[2022-01-13 08:52] LABS: Basophils # 0.1 10*3/uL (0.0-0.2); Basophils % 0.9 % (0.0-0.8); Eosinophils # 0.3 10*3/uL (0.0-0.87); Eosinophils % 4.2 % (0.00-10.9); Hematocrit 33.5 VOL% (35.7-47.0); Hemoglobin 11.3 GM/DL (12.0-16.0); Immature Granulocytes % 0.5 %; Immature Granulocytes Absolute 0.04 #; Lymphocytes # 2.8 10*3/uL (1.4-4.0); Lymphocytes % 36.1 % (21.3-54.2); Mean Corpuscular HGB Conc 33.7 GM/DL (32-36); Mean Corpuscular Volume 88.9 FL (87-102); Mean Platelet Volume 11.1 FL (9.6-12.0); Monocytes # 0.8 10*3/uL (0.11-0.8); Monocytes % 10.9 % (1.7-12.7); Neutrophils % 47.4 % (38.7-73.9); Platelet Count 231 T/CUMM (130-400); Red Blood Count 3.77 MC/CUMM (3.8-5.5); Red Cell Distribution Width 13.2 % (9.3-17.3); White Blood Count 7.7 T/CUMM (4-12)
[2022-01-13 09:06] LABS: Albumin 3.1 G/DL (3.4-5.0); Bilirubin,Total 0.4 MG/DL (0.20-1.00); Calcium 8.1 MG/DL (8.5-10.1); Osmolality,Calculated 286.5 MOS/KG (273-304); Potassium 3.7 MMOL/L (3.5-5.1); Total Protein 6.1 G/DL (6.4-8.2)
[2022-01-13] MEDS ORDERED: GLUCAGON 1 MG VIAL IM PRN (10:03)
[2022-01-13] MEDS ORDERED: ONDANSETRON 4 MG/2 ML VIAL IV PRN (10:03)
[2022-01-13] MEDS ORDERED: NITROGLYCERIN SL 0.4 MG TABLET SL PRN (10:07)
[2022-01-13] MEDS ORDERED: DEXTROSE 10% 250 ML BAG IV PRN (10:09)
[2022-01-13] MEDS: ENOXAPARIN 80 MG/0.8 ML SYRINGE SUBCUT SCH ×2 (11:22→21:53)
[2022-01-13] MEDS: SODIUM CHLORIDE 0.45% 1,000 ML IV SCH ×2 (11:26→23:41)
[2022-01-13] MEDS: INSULIN LISPRO 100 UNIT/ML SUBCUT SCH ×3 (12:32→21:54)
[2022-01-13] MEDS: ALUMINUM/MAGNES/SIMETH MAX STR 30 ML UDCUP PO PRN ×2 (16:03→23:41)
[2022-01-13] MEDS ORDERED: PRAZOSIN 1 MG CAPSULE PO SCH (21:00)
[2022-01-13] MEDS ORDERED: LOSARTAN 50 MG TABLET PO SCH (21:00)
[2022-01-13] MEDS: PRAZOSIN 1 MG CAPSULE PO SCH (21:53)
[2022-01-13] MEDS: PANTOPRAZOLE 40 MG TABLET PO SCH (21:53)
[2022-01-13] MEDS: DOCUSATE SODIUM 100 MG CAPSULE PO SCH (21:53)
[2022-01-13] MEDS: SIMVASTATIN 20 MG TABLET PO SCH (21:53)
[2022-01-13] MEDS: busPIRone 15 MG TABLET PO SCH (21:54)
[2022-01-13] MEDS: levETIRAcetam 500 MG TABLET PO SCH (21:54)
[2022-01-13] MEDS: INSULIN GLARGINE 100 UNIT/ML SUBCUT SCH (21:54)
[2022-01-14 05:30] LABS: Calcium 8.3 MG/DL (8.5-10.1); Potassium 3.9 MMOL/L (3.5-5.1)
[2022-01-14 05:37] LABS: Risk Ratio 2.43; VLDL Cholesterol 15.4 MG/DL
[2022-01-14] MEDS ORDERED: GLIMEPIRIDE 2 MG TABLET PO SCH (08:00)
[2022-01-14] MEDS: INSULIN LISPRO 100 UNIT/ML SUBCUT SCH ×4 (08:09→21:18)
[2022-01-14] MEDS ORDERED: PANTOPRAZOLE 40 MG TABLET PO SCH (09:00)
[2022-01-14] MEDS ORDERED: ISOSORBIDE MONONITRATE 60 MG TABLET PO SCH (09:00)
[2022-01-14] MEDS: GLIMEPIRIDE 2 MG TABLET PO SCH ×2 (09:04→16:16)
[2022-01-14] MEDS: DOCUSATE SODIUM 100 MG CAPSULE PO SCH ×2 (09:09→21:17)
[2022-01-14] MEDS: levETIRAcetam 500 MG TABLET PO SCH ×2 (09:10→21:18)
[2022-01-14] MEDS: ASPIRIN EC 81 MG TABLET PO SCH (09:10)
[2022-01-14] MEDS: PRAZOSIN 1 MG CAPSULE PO SCH ×2 (09:10→21:18)
[2022-01-14] MEDS: busPIRone 15 MG TABLET PO SCH ×2 (09:11→21:18)
[2022-01-14] MEDS: ENOXAPARIN 80 MG/0.8 ML SYRINGE SUBCUT SCH ×2 (09:11→21:18)
[2022-01-14] MEDS: POTASSIUM CHLORIDE 20 MEQ TABLET PO SCH (09:11)
[2022-01-14] MEDS: PANTOPRAZOLE 40 MG TABLET PO SCH ×2 (09:11→21:17)
[2022-01-14] MEDS: ESCITALOPRAM 10 MG TABLET PO SCH (09:11)
[2022-01-14] MEDS: FUROSEMIDE 40 MG TABLET PO SCH (09:11)
[2022-01-14] MEDS: SODIUM CHLORIDE 0.45% 1,000 ML IV SCH (13:32)
[2022-01-14] MEDS: INSULIN GLARGINE 100 UNIT/ML SUBCUT SCH (21:18)
[2022-01-14] MEDS: SIMVASTATIN 20 MG TABLET PO SCH (21:18)
[2022-01-15] MEDS: hydrALAZINE 25 MG TABLET PO PRN ×2 (00:49→08:09)
[2022-01-15] MEDS: SODIUM CHLORIDE 0.45% 1,000 ML IV SCH (01:48)
[2022-01-15 05:45] LABS: Basophils # 0.1 10*3/uL (0.0-0.2); Eosinophils # 0.4 10*3/uL (0.0-0.87); Eosinophils % 5.4 % (0.00-10.9); Hematocrit 37.6 VOL% (35.7-47.0); Hemoglobin 12.7 GM/DL (12.0-16.0); Immature Granulocytes % 0.3 %; Immature Granulocytes Absolute 0.02 #; Lymphocytes # 3.7 10*3/uL (1.4-4.0); Lymphocytes % 52.1 % (21.3-54.2); Mean Corpuscular HGB Conc 33.8 GM/DL (32-36); Mean Corpuscular Volume 89.5 FL (87-102); Mean Platelet Volume 11.4 FL (9.6-12.0); Monocytes # 0.6 10*3/uL (0.11-0.8); Monocytes % 9.1 % (1.7-12.7); Neutrophils % 32.1 % (38.7-73.9); Platelet Count 272 T/CUMM (130-400); Red Cell Distribution Width 13.2 % (9.3-17.3); White Blood Count 7.1 T/CUMM (4-12)
[2022-01-15 06:03] LABS: Calcium 8.3 MG/DL (8.5-10.1); Osmolality,Calculated 285.8 MOS/KG (273-304); Potassium 3.4 MMOL/L (3.5-5.1)
[2022-01-15 06:11] LABS: Eosinophils 4 % (0-10); Lymphocytes 43 % (20-55); Total Cells Counted 100
[2022-01-15 06:12] LABS: Platelet Estimate Adequate
[2022-01-15] MEDS: INSULIN LISPRO 100 UNIT/ML SUBCUT SCH ×4 (07:51→20:57)
[2022-01-15] MEDS: ASPIRIN EC 81 MG TABLET PO SCH (08:10)
[2022-01-15] MEDS: DOCUSATE SODIUM 100 MG CAPSULE PO SCH ×2 (08:11→20:55)
[2022-01-15] MEDS: levETIRAcetam 500 MG TABLET PO SCH ×2 (08:11→20:55)
[2022-01-15] MEDS: POTASSIUM CHLORIDE 20 MEQ TABLET PO SCH (08:11)
[2022-01-15] MEDS: GLIMEPIRIDE 2 MG TABLET PO SCH ×2 (08:11→16:33)
[2022-01-15] MEDS: FUROSEMIDE 40 MG TABLET PO SCH (08:12)
[2022-01-15] MEDS: PANTOPRAZOLE 40 MG TABLET PO SCH ×2 (08:12→20:55)
[2022-01-15] MEDS: PRAZOSIN 1 MG CAPSULE PO SCH ×2 (08:12→20:56)
[2022-01-15] MEDS: ESCITALOPRAM 10 MG TABLET PO SCH (08:15)
[2022-01-15] MEDS: busPIRone 15 MG TABLET PO SCH ×2 (08:16→20:55)
[2022-01-15] MEDS: ENOXAPARIN 80 MG/0.8 ML SYRINGE SUBCUT SCH (08:17)
[2022-01-15] MEDS: LOSARTAN 50 MG TABLET PO SCH (09:25)
[2022-01-15] MEDS: ACETAMINOPHEN 325 MG TABLET PO PRN ×2 (15:44→21:01)
[2022-01-15] MEDS: SIMVASTATIN 20 MG TABLET PO SCH (20:55)
[2022-01-15] MEDS: INSULIN GLARGINE 100 UNIT/ML SUBCUT SCH (20:57)
[2022-01-16 05:06] LABS: Basophils # 0.1 10*3/uL (0.0-0.2); Basophils % 1.2 % (0.0-0.8); Eosinophils # 0.2 10*3/uL (0.0-0.87); Eosinophils % 3.5 % (0.00-10.9); Hematocrit 37.1 VOL% (35.7-47.0); Hemoglobin 12.5 GM/DL (12.0-16.0); Immature Granulocytes % 0.4 %; Immature Granulocytes Absolute 0.02 #; Lymphocytes # 2.4 10*3/uL (1.4-4.0); Lymphocytes % 47.7 % (21.3-54.2); Mean Corpuscular HGB Conc 33.7 GM/DL (32-36); Mean Corpuscular Volume 89.2 FL (87-102); Monocytes # 0.5 10*3/uL (0.11-0.8); Monocytes % 10.2 % (1.7-12.7); Platelet Count 252 T/CUMM (130-400); Red Blood Count 4.16 MC/CUMM (3.8-5.5); Red Cell Distribution Width 13.2 % (9.3-17.3); White Blood Count 5.1 T/CUMM (4-12)
[2022-01-16 05:27] LABS: Calcium 7.9 MG/DL (8.5-10.1); Osmolality,Calculated 287.6 MOS/KG (273-304); Potassium 3.4 MMOL/L (3.5-5.1)
[2022-01-16 05:42] LABS: Eosinophils 4 % (0-10); Hypochromia Slight; Lymphocytes 50 % (20-55); Microcytosis Slight; Platelet Estimate Adequate; Total Cells Counted 100
[2022-01-16 08:04] VITALS: BP 163/79
[2022-01-16] MEDS: INSULIN LISPRO 100 UNIT/ML SUBCUT SCH (08:05)
[2022-01-16] MEDS: PANTOPRAZOLE 40 MG TABLET PO SCH (09:02)
[2022-01-16] MEDS: LOSARTAN 50 MG TABLET PO SCH (09:02)
[2022-01-16] MEDS: ASPIRIN EC 81 MG TABLET PO SCH (09:03)
[2022-01-16] MEDS: busPIRone 15 MG TABLET PO SCH (09:03)
[2022-01-16] MEDS: FUROSEMIDE 40 MG TABLET PO SCH (09:03)
[2022-01-16] MEDS: PRAZOSIN 1 MG CAPSULE PO SCH (09:03)
[2022-01-16] MEDS: POTASSIUM CHLORIDE 20 MEQ TABLET PO SCH (09:03)
[2022-01-16] MEDS: DOCUSATE SODIUM 100 MG CAPSULE PO SCH (09:03)
[2022-01-16] MEDS: ESCITALOPRAM 10 MG TABLET PO SCH (09:03)
[2022-01-16] MEDS: levETIRAcetam 500 MG TABLET PO SCH (09:03)
[2022-01-16] MEDS: GLIMEPIRIDE 2 MG TABLET PO SCH (09:03)
== END 2022-01-16 11:47 | disposition home health service (06) | DRG 312 ==
LOC: EDUNIT# → EDBD → N.ED 08:06 → N.EDINP 10:03 → N.TELES 14:20
PROVIDERS: ADMIT Internal Medicine; ATTEND Internal Medicine